=== PATIENT | female | born 1965 | race Caucasian/White ===

== ENCOUNTER 2018-05-01 11:50 | Emergency (ER) | payer BC ==
[2018-05-01 12:11] VITALS: BP 128/88
[2018-05-01] MEDS ORDERED: Lidocaine 1%* 5 ML VIAL INJ ONE (13:23)
--- NOTE | 2018-05-01 13:36 | RAD ---
INDICATION: Intracranial injury COMPARISON: None TECHNIQUE: Noncontrast axial source images were acquired from the skull base to the vertex. FINDINGS: Ventricles/sulci: The ventricles and cisterns are normal in size and configuration for age. Brain parenchyma: There is no focal parenchymal finding, evidence of intracranial mass, or intracranial mass effect. Intracranial hemorrhage:None. Extra-axial spaces: There are no abnormal extra axial fluid collections or evidence of extra-axial mass. Calvarium: There is no calvarial fracture or other calvarial abnormality. Scalp: There is a right supraorbital/ frontal scalp hematoma.. Paranasal sinuses/mastoid: The paranasal sinuses and mastoid air cells are clear. Other: None. IMPRESSION: NO ACUTE INTRACRANIAL FINDINGS. RIGHT SUPRAORBITAL SOFT TISSUE SWELLING.
--- NOTE | 2018-05-01 14:26 | UC ---
Enrique Shepherd Tenzin, scribed for Andre Gonzalez MD on 05/01/18 at 1240 . Minor Trauma HPI - HPI Summary HPI Summary: Pt is a 52 years old female presenting to the complaining of right shoulder pain and laceration on her right forehead from a slip today at 10:30 while she was running. Per triage, pt rates the pain at 3/10 in severity and describes it as aching. Pt notes that she hit her head during the fall and noted that she had some bleeding in her head. Pt is also complaining of feeling little nauseous , YE. Pt denies LOC, change in vision, neck pain. No aggravating or alleviating factors were noted. - History of Current Complaint Chief Complaint: UCSkin Stated Complaint: FACIAL INJURY Hx Obtained From: Patient Hx Last Menstrual Period: TWO YEARS AGO Onset/Duration: Sudden Onset - at 10:30 today. Severity Currently: Mild Pain Intensity: 3 Pain Scale Used: 0-10 Numeric Mechanism Of Injury: Fall From A Standing Position Aggravating Factor(s): Nothing Alleviating Factor(s): Nothing Associated Signs And Symptoms: Negative: Loss Of Consciousness - Allergies/Home Medications Allergies/Adverse Reactions: Allergies Allergy/AdvReac Type Severity Reaction Status Date / Time CT scan dye Allergy Hives Uncoded 05/01/18 12:05 PMH/Surg Hx/FS Hx/Imm Hx - Additional Past Medical History Additional PMH: NEGATIVE: HTN, DM. - Surgical History Surgical History: Yes Surgery Procedure, Year, and Place: knee surgery 2 years ago - left. TONSILLECTOMY - Family History Known Family History: Positive: Other - CANCER. - Social History Alcohol Use: Occasionally Alcohol Amount: 1-2 drinks a day Substance Use Type: None Smoking Status (MU): Never Smoked Tobacco - Immunization History Most Recent Tetanus Shot: WITHIN 5 YEARS Review of Systems Constitutional: Negative Skin: Other - 1.5 cm laceration on the right lateral forehead. Eyes: Negative ENT: Negative Respiratory: Negative Cardiovascular: Negative Gastrointestinal: Negative Genitourinary: Negative Motor: Negative Neurovascular: Negative Musculoskeletal: Other: Neurological: Negative Psychological: Negative All Other Systems Reviewed And Are Negative: Yes Physical Exam - Summary Physical Exam Summary: General: well-appearing, no pain distress Skin: warm, color reflects adequate perfusion, dry Head: 1.5 cm laceration right lateral forehead. Eyes: EOMI, BRENDA ENT: normal Neck: supple, nontender Respiratory: CTA, breath sounds present Cardiovascular: RRR Abdomen: soft, nontender Bowel: present Musculoskeletal: normal, strength/ROM intact Neurological: sensory/motor intact, A&O x3 Psychological: affect/mood appropriate GCS: 15 Triage Information Reviewed: Yes Vital Signs: Initial Vital Signs Temp 98.8 F 05/01/18 12:07 Pulse 75 05/01/18 12:07 Resp 16 05/01/18 12:07 BP 128/88 05/01/18 12:07 Pulse Ox 100 05/01/18 12:07 Vital Signs Reviewed: Yes Procedures - Laceration/Wound Repair 1 Location: head - right forehead 1.5 cm laceration. Description: Linear Anesthesia: 1.0%, Lido Laceration/Wound Explored: clean - Saline water. Closure: Skin Adhesive - glue on one edge. Suture Type: Prolene - 6-0 Number of Sutures: 3 Layer Closure?: Yes Diagnostics - Radiology CT BRAIN Radiology Interpretation Completed By: Radiologist - IMPRESSION: NO ACUTE INTRACRANIAL FINDINGS. RIGHT SUPRAORBITAL SOFT TISSUE SWELLING. Minor Trauma Course/Dx - Course Course Of Treatment: CT RESULTS DISCUSSED WITH THE PATIENT. - Differential Dx/Diagnosis Provider Diagnoses: HEAD INJURY. FACIAL LACERATION Discharge - Sign-Out/Discharge Documenting (check all that apply): Discharge/Admit/Transfer - Discharge Plan Condition: Stable Disposition: HOME Patient Education Materials: Head Injury (ED), Facial Laceration (ED) Referrals: Trinity Thomas MD [Primary Care Provider] - Additional Instructions: FOLLOW UP WITH YOUR DOCTOR. SUTURES OUT IN 5 DAYS. KEEP THE LACERATION MOIST WITH OINTMENT TO MINIMIZE SCARRING. GET RECHECKED FOR ANY WORSENING OF YOUR CONDITION OR QUESTIONS OR CONCERNS. - Billing Disposition and Condition Condition: STABLE Disposition: Home The documentation as recorded by the Enrique hoyt Tenzin accurately reflects the service I personally performed and the decisions made by me, Andre Gonzalez MD.
== END 2018-05-01 14:08 | disposition home or self-care (01) ==
LOC: UCEAST 11:50
DX: S01.81XA Laceration without foreign body of other part of head, initial encounter (principal); S09.90XA Unspecified injury of head, initial encounter; M25.511 Pain in right shoulder; W01.0XXA Fall on same level from slipping, tripping and stumbling without subsequent striking against object, initial encounter; Y93.02 Activity, running; Y92.9 Unspecified place or not applicable; Z91.041 Radiographic dye allergy status
CPT/HCPCS: 12011; 70450; 99211; G0463